=== PATIENT | female | born 1985 | race Caucasian/White ===

== ENCOUNTER 2017-11-19 08:19 | Emergency (ER) | payer OTHER, SELFPAY ==
[2017-11-19 08:19] VITALS: BP 132/71; PULSE 87; RESP 15; TEMP 36.1; O2SAT 99; BMI 36.0
--- NOTE | 2017-11-19 08:28 | ED.DCSUM_ITS ---
- ER Visit Summary Date of Service: 11/19/17 Chief Complaint: Left ankle injury History of Present Illness: The patient is a 32 F presents to the emergency department with left ankle injury. Patient states last night she was playing video games. States she jumped to do a dance. She twisted her foot underneath her. She did not fall or strike her head. She states this morning, she woke up , the swelling is worse. She has had a difficult time bearing weight on the ankle. She has fractured this ankle in the past. She has not taken anything for her pain. She is otherwise healthy. Physical Examination: Exam is relatively unremarkable. There is ecchymosis and swelling over the left lateral malleolus. There is no pain at the proximal fibula. There is no pain at the head of the fifth metatarsal. Pulses are normal. Compartments are soft. Malone testing is negative. Test Results: [] Emergency Department Course and Treatment: Patient underwent plain films of the left ankle. There is no evidence of fracture or dislocation. There is lateral soft tissue swelling. Clinically, I do for the patient likely has an ankle sprain. She will be placed in an Aircast, given crutches, and anti- inflammatories. She will be given outpatient with repeated follow-up if her symptoms are not improving within a week. The patient be discharged home. Treatment Plan: [] Disposition: Discharge Impression: Left ankle sprain This note was generated with [employer] dictation software. It may contain incorrect words, spelling, and punctuation that were not noted in review of the chart prior to signing ED Disposition - Plan for ED Patient: Chief Complaint: Lower Extremity Injury Instructions: ED Sprain Ankle W X Ray Prescriptions: Naproxen [Naprosyn] 500 mg PO BID PRN #20 tab Referrals: Wilber Monaco DO [STAFF PHYSICIAN] -
--- NOTE | 2017-11-19 08:33 | RAD_ITS ---
STUDY: X-RAY - RIGHT ANKLE REASON FOR EXAM: Female, 32 years old. Twisting injury. Pain and swelling. TECHNIQUE: 3 view(s) of the ankle. COMPARISON: None. FINDINGS: Normal visualized distal tibia and fibula. Normal medial and lateral malleoli. Normal tibiotalar articulation and ankle mortise. Normal visualized talus and calcaneus. The visualized subtalar, talonavicular, calcaneocuboid and tarsal articulations are normal. There is no demonstrated fracture. Lateral soft tissue swelling. RAD/Ankle min 3 Views IMPRESSION: No fracture seen. Soft tissue swelling. Electronically Signed: Noe Centeno MD at 8:49 EDT , Service support ,
[2017-11-19] MEDS: HYDROcodone Bitartrate/Apap 5/325 Tablet PO (08:52)
== END 2017-11-19 09:12 | disposition home or self-care (01) ==
PROVIDERS: Emergency Provider Emergency Medicine; Family Provider Student in an Organized Health Care Education/Training Program; PCP Student in an Organized Health Care Education/Training Program
DX: S93.402A Sprain of unspecified ligament of left ankle, initial encounter (principal); X50.1XXA Overexertion from prolonged static or awkward postures, initial encounter; Y93.41 Activity, dancing; Y92.9 Unspecified place or not applicable; Y99.9 Unspecified external cause status; E03.9 Hypothyroidism, unspecified; Z79.899 Other long term (current) drug therapy
CPT/HCPCS: 73610; 99284